=== PATIENT | female | born 1980 | race Caucasian/White ===

== ENCOUNTER 2024-06-17 19:33 | Emergency (ER) | payer OTHER ==
[2024-06-17 19:41] VITALS: TEMP 98.3; BMI 36.6
[2024-06-17 20:35] LABS: EPI CELLS 22 /uL (0-25.1); HYALINE CASTS 1 /uL (0-3.1); URINE APPEARANCE TURBID; URINE BACTERIA 8426 /uL (0-1359); URINE BILIRUBIN NEGATIVE (NEGATIVE); URINE COLOR YELLOW; URINE GLUCOSE (UA) 2+ (NEGATIVE); URINE KETONE TRACE (NEGATIVE); URINE LEUK ESTERASE 3+ (NEGATIVE); URINE NITRITE POSITIVE (NEGATIVE); URINE PROTEIN 3+ (NEGATIVE); URINE RBC 3606 /uL (0-23.9); URINE WBC 7746 /uL (0-25.8)
[2024-06-17 21:21] VITALS: BP 174/100; PULSE 85; RESP 17
== END 2024-06-17 21:22 | disposition home or self-care (01) ==
LOC: JER 19:33
DX: N39.0 Urinary tract infection, site not specified (principal); R31.9 Hematuria, unspecified; I10 Essential (primary) hypertension; R10.30 Lower abdominal pain, unspecified; R30.0 Dysuria
CPT/HCPCS: 81003; 84703; 87086; 87186; 99283-25